=== PATIENT | female | born 1965 | race African-American/Black ===

== ENCOUNTER 2023-10-07 14:42 | Inpatient (IN) | payer BC ==
[2023-10-07 15:42] LABS: BASO % 1.7 % (0-2.0); EOS % 2.4 % (0-4.5); HEMATOCRIT 28.2 % (32.4-45.2); HEMOGLOBIN 9.4 GM/dL (10.7-15.3); LYMPH % 27.2 % (8-40); MCH 28.5 pg (25.7-33.7); MCHC 33.5 g/dl (32.0-36.0); MEAN PLT VOLUME 7.5 fl (7.5-11.1); MONO % 10.6 % (3.8-10.2); NEUT % 58.1 % (42.8-82.8); PLATELET COUNT 279 10^3/uL (134-434); RBC 3.32 M/mm3 (3.60-5.2); RDW 11.8 % (11.6-15.6); WHITE BLOOD COUNT 5.5 K/mm3 (4.0-10.0)
[2023-10-07 15:49] LABS: INR 1.04 (0.83-1.09)
[2023-10-07 15:51] LABS: ACTIVATED PTT 31.7 SECONDS (25.2-36.5)
[2023-10-07 15:55] LABS: POTASSIUM 4.4 mmol/L (3.5-5.1)
[2023-10-07 15:57] LABS: CALCIUM 9.4 mg/dL (8.5-10.1)
[2023-10-07 15:58] LABS: ALBUMIN 3.4 g/dl (3.4-5.0); BLOOD UREA NITROGEN 24.2 mg/dL (7-18)
[2023-10-07 16:01] LABS: CREATININE 1.2 mg/dL (0.55-1.3)
[2023-10-07 16:02] LABS: BILIRUBIN,TOTAL 0.2 mg/dL (0.2-1)
[2023-10-07 18:08] LABS: EPI CELLS 2 /uL (0-25.1); HYALINE CASTS 0 /uL (0-3.1); PH,URINE 7.5 (5.0-8.0); URINE APPEARANCE CLEAR; URINE BACTERIA 7491 /uL (0-1359); URINE BILIRUBIN NEGATIVE (NEGATIVE); URINE COLOR YELLOW; URINE GLUCOSE (UA) NEGATIVE (NEGATIVE); URINE KETONE NEGATIVE (NEGATIVE); URINE LEUK ESTERASE TRACE (NEGATIVE); URINE NITRITE NEGATIVE (NEGATIVE); URINE PROTEIN 2+ (NEGATIVE); URINE RBC 32 /uL (0-23.9); URINE UROBILINOGEN 0.2 mg/dL (0.2-1.0); URINE WBC 128 /uL (0-25.8)
[2023-10-07] MEDS ORDERED: CLOPIDOGREL BISULFATE 75 MG TABLET (FP) ONE (18:48)
[2023-10-07] MEDS: CLOPIDOGREL BISULFATE 75 MG TABLET (FP) PO ONE (18:55)
[2023-10-07] MEDS: ATORVASTATIN CA 80 MG TABLET (FP) PO SCH (22:21)
[2023-10-08 07:48] LABS: BASO % 0.9 % (0-2.0); EOS % 2.8 % (0-4.5); HEMATOCRIT 26.2 % (32.4-45.2); LYMPH % 28.3 % (8-40); MCHC 34.4 g/dl (32.0-36.0); MEAN CELL VOLUME 84.3 fl (80-96); MEAN PLT VOLUME 7.7 fl (7.5-11.1); MONO % 9.6 % (3.8-10.2); NEUT % 58.4 % (42.8-82.8); PLATELET COUNT 249 10^3/uL (134-434); RDW 11.6 % (11.6-15.6); WHITE BLOOD COUNT 5.2 K/mm3 (4.0-10.0)
[2023-10-08 07:59] LABS: POTASSIUM 4.4 mmol/L (3.5-5.1)
[2023-10-08 08:02] LABS: CALCIUM 8.9 mg/dL (8.5-10.1)
[2023-10-08 08:03] LABS: ALBUMIN 3.2 g/dl (3.4-5.0); BLOOD UREA NITROGEN 23.6 mg/dL (7-18); MAGNESIUM 1.8 mg/dL (1.8-2.4)
[2023-10-08 08:06] LABS: PHOSPHOROUS 3.5 mg/dL (2.5-4.9)
[2023-10-08 08:08] LABS: BILIRUBIN,TOTAL 0.2 mg/dL (0.2-1); TOT PROT 6.6 g/dl (6.4-8.2)
[2023-10-08] MEDS: ENOXAPARIN NA (PORCINE) 40 MG/0.4 ML DISP.SYRIN SQ SCH (10:58)
[2023-10-08] MEDS: APIXABAN 5 MG TABLET PO SCH (11:24)
[2023-10-08] MEDS: CARVEDILOL 6.25 MG TABLET (FP) PO SCH (14:43)
[2023-10-09] MEDS: ASPIRIN 81 MG CHEWABLE TABLETS PO SCH (10:00)
[2023-10-09] MEDS ORDERED: CARVEDILOL 6.25 MG TABLET (FP) PO SCH (10:31)
[2023-10-09] MEDS: CARVEDILOL 12.5 MG TABLET (FP) PO SCH (21:23)
[2023-10-10] MEDS: hydrALAZINE HCL 25 MG TABLET (FP) PO SCH (06:47)
[2023-10-10 07:25] LABS: BASO % 0.6 % (0-2.0); EOS % 2.7 % (0-4.5); HEMATOCRIT 25.8 % (32.4-45.2); HEMOGLOBIN 8.7 GM/dL (10.7-15.3); LYMPH % 27.5 % (8-40); MCH 28.5 pg (25.7-33.7); MCHC 33.8 g/dl (32.0-36.0); MEAN CELL VOLUME 84.1 fl (80-96); MEAN PLT VOLUME 7.8 fl (7.5-11.1); MONO % 7.6 % (3.8-10.2); NEUT % 61.6 % (42.8-82.8); PLATELET COUNT 239 10^3/uL (134-434); RBC 3.07 M/mm3 (3.60-5.2); RDW 11.7 % (11.6-15.6); WHITE BLOOD COUNT 5.6 K/mm3 (4.0-10.0)
[2023-10-10 07:26] LABS: POTASSIUM 4.3 mmol/L (3.5-5.1)
[2023-10-10 07:29] LABS: CALCIUM 8.9 mg/dL (8.5-10.1)
[2023-10-10 07:30] LABS: ALBUMIN 3.2 g/dl (3.4-5.0); BLOOD UREA NITROGEN 24.6 mg/dL (7-18); MAGNESIUM 1.8 mg/dL (1.8-2.4)
[2023-10-10 07:33] LABS: CREATININE 1.2 mg/dL (0.55-1.3); PHOSPHOROUS 3.7 mg/dL (2.5-4.9)
[2023-10-10 07:34] LABS: TOT PROT 6.4 g/dl (6.4-8.2)
[2023-10-10 07:35] LABS: BILIRUBIN,TOTAL 0.2 mg/dL (0.2-1)
[2023-10-10 16:17] LABS: N-TERMINAL BNP 494.3 pg/ml (5-125)
[2023-10-10] MEDS: ASPIRIN 81 MG CHEWABLE TABLETS PO SCH (19:40)
[2023-10-10] MEDS: ROSUVASTATIN CA 10 MG TABLET PO ONE (19:40)
[2023-10-11 07:58] LABS: BASO % 0.8 % (0-2.0); EOS % 2.7 % (0-4.5); HEMATOCRIT 29.1 % (32.4-45.2); HEMOGLOBIN 9.5 GM/dL (10.7-15.3); LYMPH % 28.3 % (8-40); MCH 28.1 pg (25.7-33.7); MCHC 32.7 g/dl (32.0-36.0); MEAN CELL VOLUME 85.7 fl (80-96); MEAN PLT VOLUME 7.8 fl (7.5-11.1); MONO % 8.7 % (3.8-10.2); NEUT % 59.5 % (42.8-82.8); PLATELET COUNT 257 10^3/uL (134-434); RBC 3.39 M/mm3 (3.60-5.2); RDW 12.1 % (11.6-15.6); WHITE BLOOD COUNT 5.1 K/mm3 (4.0-10.0)
[2023-10-11 08:23] LABS: POTASSIUM 4.3 mmol/L (3.5-5.1)
[2023-10-11 08:28] LABS: ALBUMIN 3.4 g/dl (3.4-5.0)
[2023-10-11 08:29] LABS: BLOOD UREA NITROGEN 25.6 mg/dL (7-18); CALCIUM 9.1 mg/dL (8.5-10.1)
[2023-10-11 08:31] LABS: PHOSPHOROUS 3.6 mg/dL (2.5-4.9)
[2023-10-11 08:32] LABS: CREATININE 1.1 mg/dL (0.55-1.3)
[2023-10-11 08:33] LABS: BILIRUBIN,TOTAL 0.2 mg/dL (0.2-1); TOT PROT 7.1 g/dl (6.4-8.2)
[2023-10-11] MEDS ORDERED: amLODIPine BESYLATE 5 MG TABLET (FP) PO SCH (10:00)
[2023-10-11] MEDS: amLODIPine BESYLATE 10 MG TABLET (FP) PO SCH (11:13)
[2023-10-11] MEDS: CARVEDILOL 25 MG TABLET (FP) PO SCH (11:13)
[2023-10-11] MEDS: ASPIRIN COATED 81 MG TABLET.EC PO SCH (11:14)
[2023-10-12] MEDS: LISINOPRIL 5 MG TABLET PO SCH (18:57)
[2023-10-12] MEDS: APIXABAN 5 MG TABLET PO SCH (22:10)
[2023-10-12] MEDS: ATORVASTATIN CA 80 MG TABLET (FP) PO SCH (22:10)
[2023-10-12] MEDS: CARVEDILOL 25 MG TABLET (FP) PO SCH (22:10)
[2023-10-13] MEDS ORDERED: amLODIPine BESYLATE 10 MG TABLET (FP) PO SCH (10:00)
[2023-10-13] MEDS: ASPIRIN COATED 81 MG TABLET.EC PO SCH (10:15)
[2023-10-13] MEDS: amLODIPine BESYLATE 10 MG TABLET (FP) PO SCH (10:16)
[2023-10-13 11:29] VITALS: BMI 23.6
[2023-10-13 19:46] LABS: EPI CELLS >36 /uL (0-25.1); HYALINE CASTS 2 /uL (0-3.1); URINE APPEARANCE TURBID; URINE BACTERIA >9,000 /uL (0-1359); URINE BILIRUBIN NEGATIVE (NEGATIVE); URINE COLOR YELLOW; URINE GLUCOSE (UA) NEGATIVE (NEGATIVE); URINE KETONE NEGATIVE (NEGATIVE); URINE LEUK ESTERASE 3+ (NEGATIVE); URINE NITRITE POSITIVE (NEGATIVE); URINE PROTEIN 3+ (NEGATIVE); URINE RBC 47 /uL (0-23.9); URINE UROBILINOGEN 0.2 mg/dL (0.2-1.0); URINE WBC 2251 /uL (0-25.8)
[2023-10-14] MEDS: CEFTRIAXONE 1 GM in DEXTROSE 5%-WATER - 50 ML IVPB SCH (09:22)
[2023-10-14] MEDS: levETIRAcetam 500 MG TABLET (FP) PO SCH (22:13)
[2023-10-15 09:11] LABS: BASO % 0.7 % (0-2.0); EOS % 2.3 % (0-4.5); HEMATOCRIT 26.5 % (32.4-45.2); MCH 28.5 pg (25.7-33.7); MEAN CELL VOLUME 83.7 fl (80-96); MEAN PLT VOLUME 7.6 fl (7.5-11.1); MONO % 7.7 % (3.8-10.2); NEUT % 67.3 % (42.8-82.8); PLATELET COUNT 227 10^3/uL (134-434); RBC 3.17 M/mm3 (3.60-5.2); WHITE BLOOD COUNT 5.4 K/mm3 (4.0-10.0)
[2023-10-16 09:50] LABS: HEMATOCRIT 27.1 % (32.4-45.2); HEMOGLOBIN 9.3 GM/dL (10.7-15.3); MCH 28.5 pg (25.7-33.7); MCHC 34.2 g/dl (32.0-36.0); MEAN CELL VOLUME 83.2 fl (80-96); MEAN PLT VOLUME 7.9 fl (7.5-11.1); PLATELET COUNT 256 10^3/uL (134-434); RBC 3.26 M/mm3 (3.60-5.2); RDW 12.1 % (11.6-15.6); WHITE BLOOD COUNT 5.4 K/mm3 (4.0-10.0)
[2023-10-16 10:14] LABS: POTASSIUM 4.6 mmol/L (3.5-5.1)
[2023-10-16 10:18] LABS: BLOOD UREA NITROGEN 28.3 mg/dL (7-18); CALCIUM 8.5 mg/dL (8.5-10.1); MAGNESIUM 1.8 mg/dL (1.8-2.4)
[2023-10-16 10:19] LABS: PHOSPHOROUS 3.3 mg/dL (2.5-4.9)
[2023-10-16 10:21] LABS: BILIRUBIN,TOTAL 0.2 mg/dL (0.2-1); TOT PROT 6.6 g/dl (6.4-8.2)
[2023-10-16] MEDS: CEFUROXIME AXETIL 250 MG TABLET PO SCH (22:01)
[2023-10-17 09:08] LABS: POTASSIUM 4.4 mmol/L (3.5-5.1)
[2023-10-17 09:20] LABS: BILIRUBIN,TOTAL 0.2 mg/dL (0.2-1); CREATININE 1.1 mg/dL (0.55-1.3)
[2023-10-17 09:21] LABS: BLOOD UREA NITROGEN 29.3 mg/dL (7-18); TOT PROT 6.5 g/dl (6.4-8.2)
[2023-10-17 09:22] LABS: HEMATOCRIT 25.5 % (32.4-45.2); HEMOGLOBIN 8.6 GM/dL (10.7-15.3); MCH 27.9 pg (25.7-33.7); MCHC 33.6 g/dl (32.0-36.0); MEAN CELL VOLUME 83.1 fl (80-96); PLATELET COUNT 256 10^3/uL (134-434); RBC 3.07 M/mm3 (3.60-5.2); RDW 12.1 % (11.6-15.6); WHITE BLOOD COUNT 5.4 K/mm3 (4.0-10.0)
[2023-10-17 09:27] LABS: CALCIUM 8.7 mg/dL (8.5-10.1)
[2023-10-18 10:14] LABS: HEMATOCRIT 26.1 % (32.4-45.2); HEMOGLOBIN 8.8 GM/dL (10.7-15.3); MCH 28.4 pg (25.7-33.7); MCHC 33.8 g/dl (32.0-36.0); MEAN CELL VOLUME 84.1 fl (80-96); MEAN PLT VOLUME 7.8 fl (7.5-11.1); PLATELET COUNT 278 10^3/uL (134-434); WHITE BLOOD COUNT 6.3 K/mm3 (4.0-10.0)
[2023-10-18 10:34] LABS: POTASSIUM 4.5 mmol/L (3.5-5.1)
[2023-10-18 10:40] LABS: CALCIUM 8.7 mg/dL (8.5-10.1)
[2023-10-18 10:41] LABS: ALBUMIN 3.1 g/dl (3.4-5.0)
[2023-10-18 10:44] LABS: BILIRUBIN,TOTAL 0.2 mg/dL (0.2-1); TOT PROT 6.6 g/dl (6.4-8.2)
[2023-10-19] MEDS ORDERED: levETIRAcetam 250 MG TABLET PO ONE (09:02)
[2023-10-19 09:24] LABS: BASO % 0.5 % (0-2.0); EOS % 1.9 % (0-4.5); HEMATOCRIT 25.9 % (32.4-45.2); HEMOGLOBIN 8.9 GM/dL (10.7-15.3); MCH 28.5 pg (25.7-33.7); MCHC 34.5 g/dl (32.0-36.0); MEAN CELL VOLUME 82.8 fl (80-96); MEAN PLT VOLUME 7.7 fl (7.5-11.1); MONO % 5.2 % (3.8-10.2); NEUT % 73.4 % (42.8-82.8); PLATELET COUNT 278 10^3/uL (134-434); RBC 3.13 M/mm3 (3.60-5.2); RDW 12.2 % (11.6-15.6)
[2023-10-19 09:36] LABS: POTASSIUM 4.8 mmol/L (3.5-5.1)
[2023-10-19 09:45] LABS: BLOOD UREA NITROGEN 25.7 mg/dL (7-18)
[2023-10-19 09:46] LABS: MAGNESIUM 2.1 mg/dL (1.8-2.4)
[2023-10-19 09:48] LABS: PHOSPHOROUS 3.6 mg/dL (2.5-4.9)
[2023-10-19 09:50] LABS: TOT PROT 6.4 g/dl (6.4-8.2)
[2023-10-19 09:52] LABS: BILIRUBIN,TOTAL 0.2 mg/dL (0.2-1)
[2023-10-21 08:54] LABS: HEMATOCRIT 25.7 % (32.4-45.2); HEMOGLOBIN 8.8 GM/dL (10.7-15.3); MCH 29.1 pg (25.7-33.7); MCHC 34.4 g/dl (32.0-36.0); MEAN CELL VOLUME 84.6 fl (80-96); MEAN PLT VOLUME 7.4 fl (7.5-11.1); PLATELET COUNT 282 10^3/uL (134-434); RBC 3.04 M/mm3 (3.60-5.2); RDW 11.9 % (11.6-15.6)
[2023-10-21 09:07] LABS: POTASSIUM 4.6 mmol/L (3.5-5.1)
[2023-10-21 09:12] LABS: CALCIUM 9.1 mg/dL (8.5-10.1)
[2023-10-21 09:13] LABS: BLOOD UREA NITROGEN 27.8 mg/dL (7-18)
[2023-10-21 09:16] LABS: CREATININE 0.9 mg/dL (0.55-1.3)
[2023-10-21 09:17] LABS: BILIRUBIN,TOTAL 0.3 mg/dL (0.2-1)
[2023-10-21 09:18] LABS: TOT PROT 6.3 g/dl (6.4-8.2)
[2023-10-23 10:21] LABS: POTASSIUM 4.8 mmol/L (3.5-5.1)
[2023-10-23 10:28] LABS: HEMOGLOBIN 8.6 GM/dL (10.7-15.3); MCH 28.4 pg (25.7-33.7); MCHC 34.2 g/dl (32.0-36.0); MEAN PLT VOLUME 7.5 fl (7.5-11.1); PLATELET COUNT 293 10^3/uL (134-434); RBC 3.02 M/mm3 (3.60-5.2); RDW 12.3 % (11.6-15.6); WHITE BLOOD COUNT 5.9 K/mm3 (4.0-10.0)
[2023-10-23 10:29] LABS: CALCIUM 9.1 mg/dL (8.5-10.1)
[2023-10-23 10:30] LABS: BLOOD UREA NITROGEN 29.9 mg/dL (7-18)
[2023-10-23 10:33] LABS: CREATININE 1.1 mg/dL (0.55-1.3); PHOSPHOROUS 3.7 mg/dL (2.5-4.9)
[2023-10-23 10:34] LABS: BILIRUBIN,TOTAL 0.3 mg/dL (0.2-1); TOT PROT 6.5 g/dl (6.4-8.2)
[2023-10-23 15:27] VITALS: RESP 18
[2023-10-24 05:30] VITALS: TEMP 98.4
[2023-10-24 09:51] LABS: HEMATOCRIT 26.6 % (32.4-45.2); HEMOGLOBIN 8.9 GM/dL (10.7-15.3); MCHC 33.5 g/dl (32.0-36.0); MEAN CELL VOLUME 83.6 fl (80-96); MEAN PLT VOLUME 7.4 fl (7.5-11.1); PLATELET COUNT 289 10^3/uL (134-434); RBC 3.18 M/mm3 (3.60-5.2); RDW 12.4 % (11.6-15.6); WHITE BLOOD COUNT 6.5 K/mm3 (4.0-10.0)
[2023-10-24 10:13] LABS: POTASSIUM 4.7 mmol/L (3.5-5.1)
[2023-10-24 10:25] LABS: ALBUMIN 3.1 g/dl (3.4-5.0)
[2023-10-24 10:26] LABS: BLOOD UREA NITROGEN 27.4 mg/dL (7-18); CALCIUM 9.4 mg/dL (8.5-10.1)
[2023-10-24 10:30] LABS: BILIRUBIN,TOTAL 0.3 mg/dL (0.2-1); TOT PROT 6.6 g/dl (6.4-8.2)
[2023-10-24 15:21] VITALS: BP 163/58; PULSE 72
[2023-10-24] MEDS ORDERED: LOSARTAN POTASSIUM 25 MG TABLET PO SCH (16:45)
== END 2023-10-24 17:54 | DRG 71 ==
LOC: JER 14:42 → JERBED 17:37 → OBSVTOIN 17:59 → J4W 21:18 → J6S 10-12 14:42
PROVIDERS: ADMIT Student in an Organized Health Care Education/Training Program; ATTEND Internal Medicine
DX: G93.89 Other specified disorders of brain (principal); I16.1 Hypertensive emergency; I69.354 Hemiplegia and hemiparesis following cerebral infarction affecting left non-dominant side; N39.0 Urinary tract infection, site not specified; D64.9 Anemia, unspecified; E78.5 Hyperlipidemia, unspecified; I48.91 Unspecified atrial fibrillation; I44.7 Left bundle-branch block, unspecified; R73.03 Prediabetes; R31.29 Other microscopic hematuria; R80.9 Proteinuria, unspecified; R05.9 Cough, unspecified; T46.4X5A Adverse effect of angiotensin-converting-enzyme inhibitors, initial encounter; Z99.3 Dependence on wheelchair
CPT/HCPCS: 36415; 70450-TC; 70496-TC; 70498-TC; 70551-TC; 71045-TC-FY; 76775-TC; 76856-TC; 80053; 80061; 81003; 82550; 82728; 82962; 83036; 83540; 83550; 83735; 83880; 84100; 84443; 84478; 84484; 85025; 85027; 85045; 85610; 85730; 86850; 86900; 86901; 87086; 87186; 93005; 93010; 93306-TC; 93880-TC; 97116-GP; 97162-GP; 99285-25; G0378